=== PATIENT | female | born 1955 | race Caucasian/White ===

== ENCOUNTER 2021-01-10 16:05 | Emergency (ER) | payer MEDICARE ==
[~2021-01-10] VITALS: Ht 160 cm; Wt 90.0 kg
[2021-01-10 16:10] VITALS: BP 151/81
[2021-01-10] MEDS ORDERED: IV NORMAL SALINE 1,000ML 1,000 ML IV ONE (16:45)
[2021-01-10] MEDS ORDERED: ONDANSETRON PF 4 MG/2 ML VIAL. IVP ONE (16:45)
--- NOTE | 2021-01-10 16:57 | PHYS DOC ---
Past History Alcohol Use: None General Adult EDM: Chief Complaint: NAUSEA/VOMITING/DIARRHEA HPI: HPI: 65-year-old female presents with vomiting. Patient has had vomiting all day today. Is been mostly bile and dry heaves. She is concerned that she is getting dehydrated. She has a burning feeling in her upper chest throat because the vomiting. She denies any significant abdominal pain. She has not had diarrhea. She is vaccinated against COVID-19. She has no known sick contacts. She denies fever or chills. Review of Systems: Review of Systems: Constitutional: Denies fever or chills Eyes: Denies change in visual acuity HENT: Denies nasal congestion or sore throat Respiratory: Denies cough or shortness of breath Cardiovascular: Denies chest pain or edema GI: Nausea, vomiting. Denies abdominal pain, diarrhea. : Denies dysuria Musculoskeletal: Denies back pain or joint pain Integument: Denies rash Neurologic: Denies headache, focal weakness or sensory changes Endocrine: Denies polyuria or polydipsia Lymphatic: Denies swollen glands Psychiatric: Denies depression or anxiety Current Medications: Current Meds: Current Medications Medications (Trade) Dose Ordered Sig/Matthew Start Time Stop Time Status Last Admin Dose Admin Famotidine (Pepcid Vial) 20 mg 1X ONCE 01/10/21 17:00 01/10/21 17:01 UNV Ondansetron HCl (Zofran) 4 mg 1X ONCE 01/10/21 16:45 01/10/21 16:46 UNV Pantoprazole Sodium (Protonix Vial) 40 mg 1X ONCE 01/10/21 17:00 01/10/21 17:01 UNV Sodium Chloride 1,000 ml @ 1,000 mls/hr 1X ONCE 01/10/21 16:45 01/10/21 17:44 UNV Allergies: Allergies: Allergies Coded Allergies Type Severity Reaction Last Updated Verified Penicillins Allergy Unknown 01/10/21 Yes aspirin Allergy Unknown 01/10/21 Yes codeine Allergy Unknown 01/10/21 Yes metoclopramide Allergy Unknown 01/10/21 Yes Physical Exam: PE: Constitutional: Well developed, well nourished, obese, no acute distress, non- toxic appearance. [] HENT: Normocephalic, atraumatic, bilateral external ears normal, oropharynx moist, no oral exudates, nose normal. [] Eyes: PERRLA, EOMI, conjunctiva normal, no discharge. [] Neck: Normal range of motion, no tenderness, supple, no stridor. [] Cardiovascular: Heart rate 120, regular rhythm, no murmur [] Lungs & Thorax: Bilateral breath sounds clear to auscultation [] Abdomen: Bowel sounds normal, soft, mild epigastric tenderness, no masses, no pulsatile masses. [] Skin: Warm, dry, no erythema, no rash. [] Back: No tenderness, no CVA tenderness. [] Extremities: No tenderness, no cyanosis, no clubbing, ROM intact, no edema. [] Neurologic: Alert and oriented X 3, normal motor function, normal sensory function, no focal deficits noted. [] Psychologic: Affect normal, judgement normal, mood normal. [] Current Patient Data: Vital Signs: Vital Signs Date Time Temp Pulse Resp B/P (MAP) Pulse Ox O2 Delivery O2 Flow Rate FiO2 01/10/21 16:10 98.4 140 24 151/81 (104) 93 Room Air EKG: EK, leftward axis, no ST elevation depression. [] Radiology/Procedures: Radiology/Procedures: [] Impressions: EXAM: Chest, single view. HISTORY: Tachycardia. COMPARISON: None. FINDINGS: A frontal view of the chest is obtained. There is mild diffuse interstitial prominence without charisse congestion. There is no consolidation, pleural effusion or pneumothorax. The heart is normal in size. IMPRESSION: No acute pulmonary finding. Electronically signed by: Lea Lezama MD (01/10/2021 5:00 PM) [facility] DICTATED AND SIGNED BY: LEA LEZAMA MD DATE: 01/10/211658 CC: BONNIE DUFF DO; PCP,NO ~MTH0 0 Heart Score: C/O Chest Pain: N/A Risk Factors: Risk Factors: DM, Current or recent (<one month) smoker, HTN, HLP, family history of CAD, obesity. Risk Scores: Score 0 - 3: 2.5% MACE over next 6 weeks - Discharge Home Score 4 - 6: 20.3% MACE over next 6 weeks - Admit for Clinical Observation Score 7 - 10: 72.7% MACE over next 6 weeks - Early Invasive Strategies Course & Med Decision Making: Course & Med Decision Making Pertinent Labs and Imaging studies reviewed. (See chart for details) The patient's chest x-ray is negative for acute findings. I will give her Protonix, normal saline, Pepcid, and Zofran. The patient's labs are unremarkable. Her COVID-19 test is pending. I will discharge the patient with Zofran for her vomiting and recommend that she take Pepcid and Protonix as needed for her heartburn. She is stable for discharge at this time. [] Lester Disclaimer: Lester Disclaimer: This electronic medical record was generated, in whole or in part, using a voice recognition dictation system. Departure Departure: Impression: Primary Impression: Vomiting Qualified Codes: R11.2 - Nausea with vomiting, unspecified Disposition: 01 HOME / SELF CARE / HOMELESS Condition: STABLE Referrals: PCP,NORMA (PCP) Patient Instructions: Nausea and Vomiting, [id number] Scripts Ondansetron (ONDANSETRON ODT) 4 Mg Tab.rapdis 1 TAB PO PRN Q6-8HRS PRN for VOMITING, #16 TAB Prov: BONNIE DUFF DO 01/10/21 BONNIE DUFF DO Jan 10, 2021 16:57
[2021-01-10] MEDS ORDERED: PANTOPRAZOLE IV 40 MG VIAL. IVP ONE (17:00)
[2021-01-10] MEDS ORDERED: FAMOTIDINE 20 MG/2 ML VIAL IVP ONE (17:00)
--- NOTE | 2021-01-10 17:03 | RAD ---
EXAM: Chest, single view. HISTORY: Tachycardia. COMPARISON: None. FINDINGS: A frontal view of the chest is obtained. There is mild diffuse interstitial prominence with out charisse congestion. There is no consolidation, pleural effusion or pneumothorax. The heart is adama l in size. IMPRESSION: No acute pulmonary finding. Electronically signed by: Lea Lezama MD (01/10/2021 5:00 PM) [facility]
--- NOTE | 2021-01-10 17:16 | EKG ---
[address] [address] Test Date: 2021-01-10 Test Time: 16:52:45 Pat Name: TRACEY MARIE Department: Room: Gender: F Guidance Counselor: CLIFF : [id number] Requested By: BONNIE DUFF Order Number: [id number] Reading MD: Bandar Ma Measurements Intervals [place] Rate: 120 P: 3 IA: 156 QRS: -19 QRSD: 80 T: 39 QT: 312 QTc: 446 Interpretive Statements SINUS TACHYCARDIA LEFTWARD AXIS Electronically Signed On 01-13-2021 10:07:57 [facility] by Bandar Ma
[2021-01-10 17:38] LABS: BASO % 0 % (0-3); EOS % 0 % (0-3); HEMATOCRIT 45.8 % (36.0-47.0); HEMOGLOBIN 15.5 g/dL (12.0-15.5); LYMPH # 0.4 x10^3/uL (1.0-4.8); LYMPH % 3 % (24-48); MEAN CORPUSCULAR HEMOGLOBIN 30 pg (25-35); MEAN CORPUSCULAR HGB CONC 34 g/dL (31-37); MEAN CORPUSCULAR VOLUME 88 fL (79-100); MONO # 0.4 x10^3/uL (0.0-1.1); MONO % 3 % (0-9); NEUT # 13.6 x10^3uL (1.8-7.7); NEUT % 94 % (31-73); PLATELET COUNT 259 x10^3/uL (140-400); RED BLOOD COUNT 5.23 x10^6/uL (3.50-5.40); RED CELL DISTRIBUTION WIDTH 14.1 % (11.5-14.5); WHITE BLOOD COUNT 14.5 x10^3/uL (4.0-11.0)
[2021-01-10 17:42] LABS: CALCIUM 8.8 mg/dL (8.5-10.1); CREATININE 0.9 mg/dL (0.6-1.0); POTASSIUM 3.8 mmol/L (3.5-5.1)
[2021-01-10 17:49] LABS: ALBUMIN 3.6 g/dL (3.4-5.0); ALBUMIN/GLOBULIN RATIO 1.1 (1.0-1.7); TOTAL BILIRUBIN 0.8 mg/dL (0.2-1.0)
[2021-01-10] MEDS ORDERED: HYDROcodone/APAP 5/325MG 1 TAB TABLET PO ONE (18:00)
[2021-01-10] MEDS ORDERED: ONDA4TAB12 PO (18:00)
[2021-01-10 18:18] LABS: BACTERIA,URINE 0 /HPF (0-FEW); BILIRUBIN,URINE NEG (NEG); CLARITY,URINE CLEAR; COLOR,URINE YELLOW; GLUCOSE,URINE NEG (NEG); NITRITE,URINE NEG (NEG); RBC,URINE 0 /HPF (0-2); SQUAMOUS EPITHELIAL CELL,UR MOD /LPF; UROBILINOGEN,URINE 0.2 mg/dL (0.2 mg/dL); WBC,URINE 0 /HPF (0-4)
== END 2021-01-10 18:14 | disposition home or self-care (01) ==
LOC: ER 16:05
DX: R11.2 Nausea with vomiting, unspecified (principal); Z88.0 Allergy status to penicillin; Z88.6 Allergy status to analgesic agent; Z88.5 Allergy status to narcotic agent; Z20.822 Contact with and (suspected) exposure to COVID-19
CPT/HCPCS: 36415; 71045; 80053; 81001; 84484; 85025; 87426; 93005; 96361; 96374; 96375; 99285; C9113; C9803; J2405; J3490; J7030; U0003